=== PATIENT | male | born 1960 | race Caucasian/White ===

== ENCOUNTER 2018-02-16 22:47 | Emergency (ER) | payer SELFPAY | END 2018-02-16 23:43 | disposition left against medical advice (07) | LOC: E/R 22:47 | DX: Z53.21 Procedure and treatment not carried out due to patient leaving prior to being seen by health care provider (principal) ==

== ENCOUNTER 2018-07-20 10:05 | Day surgery (SDC) | payer OTHER ==
[2018-07-19] MEDS: SOD CHLORIDE 0.9% 1,000 ML IV (11:31)
[~2018-07-20 10:05] MED LIST: CEFAZOLIN 2 GM/50 ML (PMX) 50 ML IVPB; ROCURONIUM 50 MG INJ
[2018-07-20 11:09] LABS: ADD MAN DIFF? NO
[2018-07-20 11:15] LABS: BASOPHILS % 0.8 % (0.0-2.0); EOSINOPHILS # 0.3 10^3/ul (0.0-0.5); EOSINOPHILS % 5.5 % (0.0-7.0); HEMATOCRIT 41.9 % (42.0-52.0); HEMOGLOBIN 14.6 g/dl (14.0-18.0); LYMPHOCYTES # 1.7 10^3/ul (0.8-2.9); LYMPHOCYTES % 33.3 % (15.0-51.0); MEAN CORPUSCULAR HEMOGLOBIN 31.5 pg (29.0-33.0); MEAN CORPUSCULAR HGB CONC 34.8 g/dl (32.0-37.0); MEAN CORPUSCULAR VOLUME 90.3 fl (82.0-101.0); MEAN PLATELET VOLUME 10.5 fl (7.4-10.4); MONOCYTE # 0.5 10^3/ul (0.3-0.9); MONOCYTES % 8.8 % (0.0-11.0); NEUTROPHIL # 2.6 10^3/ul (1.6-7.5); NEUTROPHILS % 51.2 % (39.0-77.0); PLATELET COUNT 201 10^3/UL (140-415); RED BLOOD COUNT 4.64 10^6/ul (4.70-6.10)
[2018-07-20 11:15] LABS: WHITE BLOOD COUNT 5.1 10^3/ul (4.8-10.8)
[2018-07-20 11:36] LABS: ALANINE AMINOTRANSFERASE 50 IU/L (13-69); ALBUMIN 4.5 g/dl (3.3-4.9); ALKALINE PHOSPHATASE 76 IU/L (42-121); ANION GAP 12 (8-16); ASPARTATE AMINO TRANSFERASE 31 IU/L (15-46); BILIRUBIN,INDIRECT 0.8 mg/dl (0-1.1); BILIRUBIN,TOTAL 0.8 mg/dl (0.2-1.3); BLOOD UREA NITROGEN 14 mg/dl (7-20); CALCIUM 9.2 mg/dl (8.4-10.2); CARBON DIOXIDE 27 mmol/L (21-31); CHLORIDE 108 mmol/L (97-110); CREATININE 0.76 mg/dl (0.61-1.24); GLUCOSE 105 mg/dl (70-220); INR 0.95; POTASSIUM 4.1 mmol/L (3.5-5.1); PROTIME 12.8 Sec (11.9-14.9); SODIUM 143 mmol/L (135-144); TOTAL PROTEIN 7.5 g/dl (6.1-8.1)
[2018-07-20 11:37] LABS: PARTIAL THROMBOPLASTIN TIME 30.8 Sec (23.0-35.0)
[2018-07-20] MEDS ORDERED: PROPOFOL 40 ML (12:08)
[2018-07-20] MEDS ORDERED: ONDANSETRON 4 MG INJ (12:09)
[2018-07-20] MEDS ORDERED: DEXAMETHASONE 4 MG/ML 1 ML INJ (12:09)
[2018-07-20] MEDS ORDERED: LIDOCAINE 2% (SDV) 5 ML INJ (12:09)
[2018-07-20] MEDS ORDERED: MIDAZOLAM 1 MG/ML 2 ML INJ (12:09)
[2018-07-20] MEDS ORDERED: FENTAnyl 50 MCG/ML VIAL (12:09)
[2018-07-20] MEDS ORDERED: FAMOTIDINE 20 MG INJ (12:10)
[2018-07-20] MEDS ORDERED: CEFAZOLIN 1 GM INJ (12:10)
[2018-07-20] MEDS ORDERED: ACETAMINOPHEN 1000MG/100ML IV 100 ML (12:10)
[2018-07-20] MEDS ORDERED: morphine (1 MG/ML) 10ML SYRINGE IV ×2 (12:30)
[2018-07-20] MEDS ORDERED: ONDANSETRON 4 MG INJ IV (12:30)
[2018-07-20] MEDS ORDERED: LABETALOL HCL 20MG INJ IV (12:30)
[2018-07-20] MEDS ORDERED: DIPHENHYDRAMINE 50 MG INJ IV (12:30)
[2018-07-20] MEDS ORDERED: OXYCODONE/ACETAMINOPHEN (5/325) TAB PO ×2 (12:30)
[2018-07-20] MEDS ORDERED: ALBUTEROL 0.083% (NEB) 2.5 MG/3 ML AMP HHN (12:30)
[2018-07-20] MEDS ORDERED: MEPERIDINE 25 MG INJ IV (12:30)
[2018-07-20] MEDS ORDERED: FENTAnyl 50 MCG/ML VIAL IV ×2 (12:30)
[2018-07-20] MEDS ORDERED: HYDROmorphONE 1 MG/5 ML IV SYRINGE IV ×2 (12:30)
[2018-07-20] MEDS ORDERED: SUGAMMADEX SODIUM 200 MG/2 ML VIAL IV (12:45)
[2018-07-20] MEDS ORDERED: HYDROmorphONE 2 MG/ML SYG (13:03)
[2018-07-20] MEDS: BUPIVACAINE 0.5% (SDV) 30 ML INJ (13:32)
[2018-07-20] MEDS: LIDOCAINE 1%/EPI 30 ML INJ (13:32)
[2018-07-20 15:07] LABS: ADD MAN DIFF? NO
[2018-07-20 15:08] LABS: BASOPHILS % 0.3 % (0.0-2.0); EOSINOPHILS # 0.1 10^3/ul (0.0-0.5); EOSINOPHILS % 0.4 % (0.0-7.0); HEMATOCRIT 40.8 % (42.0-52.0); HEMOGLOBIN 14.2 g/dl (14.0-18.0); LYMPHOCYTES # 0.8 10^3/ul (0.8-2.9); LYMPHOCYTES % 6.6 % (15.0-51.0); MEAN CORPUSCULAR HEMOGLOBIN 31.5 pg (29.0-33.0); MEAN CORPUSCULAR HGB CONC 34.8 g/dl (32.0-37.0); MEAN CORPUSCULAR VOLUME 90.5 fl (82.0-101.0); MEAN PLATELET VOLUME 10.1 fl (7.4-10.4); MONOCYTE # 0.2 10^3/ul (0.3-0.9); MONOCYTES % 1.7 % (0.0-11.0); NEUTROPHIL # 10.6 10^3/ul (1.6-7.5); NEUTROPHILS % 90.6 % (39.0-77.0); PLATELET COUNT 195 10^3/UL (140-415); RED BLOOD COUNT 4.51 10^6/ul (4.70-6.10); RED CELL DISTRIBUTION WIDTH 12.2 % (11.5-14.5)
[2018-07-20 15:08] LABS: WHITE BLOOD COUNT 11.7 10^3/ul (4.8-10.8)
== END 2018-07-20 16:00 | disposition home or self-care (01) ==
LOC: SDS 10:05
DX: K80.10 Calculus of gallbladder with chronic cholecystitis without obstruction (principal)
CPT/HCPCS: 47562; 80053; 85025; 85610; 85730; 88304; 93005